=== PATIENT | female | born 1980 | race Hispanic/Latino ===

== ENCOUNTER 2021-02-11 16:41 | Emergency (ER) | payer BC ==
[~2021-02-11] VITALS: Ht 160 cm; Wt 110.4 kg
[2021-02-11] MEDS ORDERED: CYCLOBENZAPRINE10 MG PO (18:53)
[2021-02-11] MEDS ORDERED: NAPROSYN500 MG PO (18:54)
== END 2021-02-11 19:44 | disposition home or self-care (01) ==
LOC: FSED 18:40
DX: M54.6 Pain in thoracic spine (principal); S23.3XXA Sprain of ligaments of thoracic spine, initial encounter; X50.9XXA Other and unspecified overexertion or strenuous movements or postures, initial encounter
CPT/HCPCS: 99282